=== PATIENT | male | born 1985 | race American Indian/Alaskan Native ===

== ENCOUNTER 2019-06-30 04:13 | Emergency (ER) | payer OTHER ==
--- NOTE | 2019-06-30 05:06 | XRay Report ---
Left ankle 3 views INDICATION: Left ankle pain following injury IMPRESSION: Severe swelling overlying the lateral malleolus. No underlying fracture or subluxation. Signer Name: Joe Silva MD Signed: 06/30/2019 5:01 AM Workstation Name: [id number]
[2019-06-30] MEDS ORDERED: HYDROcodone/ACETAMINOPHEN 5-325 MG TAB PO ONE (06:01)
--- NOTE | 2019-06-30 06:18 | Emergency Department Report ---
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 Pt is nonweight bearing with moderate swelling and pain. Pain is described as sharp aching , there is no numbness , no ecchymosis. MD Complaint: ankle injury Onset/Timin -: hour(s) Injury: Ankle: Left Type of Injury: eversion Place: work Severity: moderate Severity scale (0 -10): 6 Worsens With: weight bearing, movement, palpation Context: fall, other (twisted ) Associated Symptoms: snap/pop sensation, swelling, tingling, unable to bear weight. denies: numbness - Related Data Previous Rx's Medication Instructions Recorded Last Taken Type Acetaminophen/Codeine [Tylenol 1 tab PO Q6H PRN #12 tab 06/30/19 Unknown Rx /Codeine # 3 tab] Naproxen 500 mg PO BID PRN #30 tablet 06/30/19 Unknown Rx Allergies Allergy/AdvReac Type Severity Reaction Status Date / Time No Known Allergies Allergy Unverified 06/30/19 04:22 ED Review of Systems ROS: Stated complaint: LT ANKLE PAIN Other details as noted in HPI Constitutional: denies: chills, fever Eyes: denies: eye pain, eye discharge, vision change ENT: denies: ear pain, throat pain Respiratory: denies: cough, shortness of breath, wheezing Cardiovascular: denies: chest pain, palpitations Endocrine: no symptoms reported Gastrointestinal: denies: abdominal pain, nausea, diarrhea Genitourinary: denies: urgency, dysuria Musculoskeletal: joint swelling (left ankle ). denies: back pain, arthralgia Skin: denies: rash, lesions Neurological: denies: headache, weakness, paresthesias Psychiatric: denies: anxiety, depression ED Past Medical Hx - Past Medical History Previous Medical History?: No - Surgical History Past Surgical History?: Yes Additional Surgical History: shoulder - Social History Smoking Status: Current Every Day Smoker Substance Use Type: Alcohol - Medications Home Medications: Home Medications Medication Instructions Recorded Confirmed Last Taken Type Acetaminophen/Codeine [Tylenol 1 tab PO Q6H PRN #12 tab 06/30/19 Unknown Rx /Codeine # 3 tab] Naproxen 500 mg PO BID PRN #30 tablet 06/30/19 Unknown Rx ED Physical Exam - General Limitations: No Limitations General appearance: alert, in no apparent distress - Head Head exam: Present: atraumatic, normocephalic - Eye Eye exam: Present: normal appearance - ENT ENT exam: Present: mucous membranes moist - Neck Neck exam: Present: normal inspection, full ROM. Absent: tenderness, lymphadenopathy - Respiratory Respiratory exam: Present: normal lung sounds bilaterally. Absent: respiratory distress, wheezes, stridor, chest wall tenderness - Cardiovascular Cardiovascular Exam: Present: regular rate, normal rhythm, normal heart sounds. Absent: systolic murmur, diastolic murmur, rubs, gallop - GI/Abdominal GI/Abdominal exam: Present: soft, normal bowel sounds. Absent: distended, tenderness - Rectal Rectal exam: Present: deferred - Extremities Exam Extremities exam: Present: tenderness, normal capillary refill, joint swelling (left ankle ). Absent: pedal edema, calf tenderness - Expanded Lower Extremity Exam Left Ankle exam: Present: tenderness (generalized tenderness , neg martinez's test ), swelling. Absent: abrasion, laceration, ecchymosis, deformity, crepidus, dislocation, erythema, anterior draw sign Foot/Toe exam: Present: full ROM, tenderness, swelling. Absent: abrasion, laceration, ecchymosis, deformity, crepidus, dislocation, erythema, amputation, puncture wound, foreign body, calcaneal tenderness, tenderness at base of 5th metatarsal, nail avulsion, subungual hematoma Neuro vascular tendon exam: Absent: pulse deficit, motor deficit, sensory deficit, tendon deficit Gait: Positive: unable to bear weight - Back Exam Back exam: Present: normal inspection, full ROM. Absent: tenderness, CVA tenderness (R), CVA tenderness (L), muscle spasm, vertebral tenderness, rash noted - Neurological Exam Neurological exam: Present: alert, oriented X3, abnormal gait (non weight bearing left ankle ), reflexes normal. Absent: motor sensory deficit - Expanded Neurological Exam Expanded Patient oriented to: Present: person, place, time Speech: Present: fluid speech Cranial nerves: EOM's Intact: Normal, Gag Reflex: Normal, Tongue Deviation: Normal, Nystagmus: Normal, Facial Sensation: Normal Upper motor neuron: Alexandro Neglect: Normal, Pronator Drift: Normal Motor strength exam: RLE: 5, LLE: 5 DTR: ankle (R): 2+, ankle (L): 2+ Best Eye Response ([place]): (4) open spontaneously Best Motor Response ([place]): (6) obeys commands Best Verbal Response ([place]): (5) oriented [place] Total: 15 - Psychiatric Psychiatric exam: Present: normal affect, normal mood - Skin Skin exam: Present: warm, dry, intact, normal color. Absent: rash ED Course Vital Signs 06/30/19 04:21 Temperature 98.5 F Pulse Rate 87 Respiratory 17 Rate Blood Pressure 172/118 [Right] O2 Sat by Pulse 100 Oximetry ED Lower Extremity MDM - Radiology Data Radiology results: report reviewed, image reviewed Ordering Physician: RHONDA BENNETT MD Date of Service: 06/30/19 Procedure(s): XR ankle 3+V LT Accession Number(s): [id number] cc: ED MD DONALD Fluoro Time In Minutes: Left ankle 3 views INDICATION: Left ankle pain following injury IMPRESSION: Severe swelling overlying the lateral malleolus. No underlying fracture or subluxation. Signer Name: Joe Silva MD Signed: 06/30/2019 5:01 AM Workstation Name: [id number] Transcribed By: BC Dictated By: Joe Silva MD Electronically Authenticated By: Joe Silva MD Signed Date/Time: 06/30/19500 DD/ 0 TD/TT: - Medical Decision Making xray neg for fracture, there is moderate swelling ankle. 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 pt verbalized agreement and understanding of discharge plan. Pt with htn espisode this visit, pt denies hx of htn believes is pain related, there is no dizziness no lightheadedness , no cp, no sob , no diaphoresis, no n/v , pt is a/o x 3 . Vital signs are improved after pain medication given in ED. Critical care attestation.: If time is entered above; I have spent that time in minutes in the direct care of this critically ill patient, excluding procedure time. ED Disposition Clinical Impression: Ankle sprain Qualifiers: Encounter type: initial encounter Involved ligament of ankle: unspecified ligament Laterality: left Qualified Code(s): S93.402A - Sprain of unspecified ligament of left ankle, initial encounter Disposition: TO HOME OR SELFCARE Is pt being admited?: No Does the pt Need Aspirin: No Condition: Stable Prescriptions: Naproxen 500 mg PO BID PRN #30 tablet PRN Reason: pain Acetaminophen/Codeine [Tylenol /Codeine # 3 tab] 1 tab PO Q6H PRN #12 tab PRN Reason: pain Referrals: JORJE CORREA MD [Staff Physician] - 3-5 Days Forms: Work/School Release Form(ED) Time of Disposition: 06:58
[2019-06-30 06:49] VITALS: BP 137/81
== END 2019-06-30 06:48 | disposition home or self-care (01) ==
LOC: ED 04:13
DX: S93.402A Sprain of unspecified ligament of left ankle, initial encounter (principal); F17.200 Nicotine dependence, unspecified, uncomplicated; Z79.899 Other long term (current) drug therapy; X50.1XXA Overexertion from prolonged static or awkward postures, initial encounter; Y93.89 Activity, other specified; Y92.69 Other specified industrial and construction area as the place of occurrence of the external cause; Y99.8 Other external cause status
CPT/HCPCS: 99284